=== PATIENT | male | born 1945 | race Caucasian/White ===

== ENCOUNTER 2024-09-23 18:44 | Emergency (ER) | payer MEDICARE ==
[~2024-09-23] VITALS: Ht 177.8 cm; Wt 83.0 kg
[2024-09-23 18:55] VITALS: BP 140/77; PULSE 89; RESP 16; TEMP 97.6
--- NOTE | 2024-09-23 19:09 | ERN ---
ED Note History of Present Illness Stated Complaint: LACERATION Chief Complaint: Laceration/Avulsion Time Seen by MD: 18:56 Dictation: Patient is a 79-year-old male here with a 2.5 cm laceration to the dorsum of left hand after a electric brush jumped and hit him in the back of the hand. Neurovascular CMS intact, last tetanus shot is unknown, patient states he is not a diabetic. No active bleeding at this time. Allergies: Coded Allergies: codeine (Unverified Allergy, Unknown, ITCHING, 09/23/24) Past Medical History Past Medical History: Cancer, High Cholesterol Surgical History: Tonsillectomy Surgical History Other: RT NEPHRECTOMY, LT HAND SX, NECK TUMOR REMOVAL, RT HAND SX RN Note Reviewed/Agreed w/PFSH: Yes Review of System Dictation CONSTITUTIONAL: NEGATIVE EXCEPT FOR HPI HEAD/FACE: NEGATIVE EXCEPT FOR HPI EENT: NEGATIVE EXCEPT FOR HPI RESPIRATORY: NEGATIVE EXCEPT FOR HPI GASTROINTESTINAL/ABDOMINAL: NEGATIVE EXCEPT FOR HPI GENITOURINARY: NEGATIVE EXCEPT FOR HPI MUSCULOSKELETAL: NEGATIVE EXCEPT FOR HPI INTEGUMENTARY: NEGATIVE EXCEPT FOR HPI LACERATION DORSUM LEFT HAND NEUROLOGICAL/PSYCH: NEGATIVE EXCEPT FOR HPI HEMATOLOGIC/LYMPHATIC: NEGATIVE EXCEPT FOR HPI ALL SYSTEMS NEGATIVE, EXCEPT NOTED ABOVE. 13 POINT REVIEW OF SYSTEMS ASSESSED AND ALL NEGATIVE EXCEPT FOR ABOVE. Initial Vital Sign VS Vital Signs Date Time Temp Pulse Resp B/P (MAP) Pulse Ox O2 Delivery O2 Flow Rate FiO2 09/23/24 18:55 97.5 89 16 140/77 97 Room Air 0 Physical Exam Dictation VITAL SIGNS REVIEWED GENERAL APPEARANCE: ALERT, ORIENTED X 3, MY ACUTE DISTRESS, WELL DEVELOPED, NOURISHED. HEAD AND FACE: NON-TRAUMATIC. EYES: PERRL, PINK CONJUNCTIVAS, EYELID NO TRAUMA, ANTERIOR CHAMBER WITH ARCUS SENILIS. EARS: PINNAS INTACT AND NO SIGNS OF TRAUMA OR ERYTHEMA EAR CANALS CLEAR AND NO DISCHARGE TM NO ERYTHEMA NOSE: NO DISCHARGE, NO BLEEDING. OROPHARYNX: MOUTH NORMAL, TONGUE PINK, PHARYNX CLEAR,NO ERYTHEMA, TONSILS NO EXUDATES, NO ABSCESSES NOTED, MUCOUS MEMBRANE MOIST NECK: SUPPLE, NON-TENDER, NO THYROMEGALY, NO MASSES, NO JVD, NO BRUITS BREAST:DEFERRED CHEST:NO TENDERNESS, NO CREPITUS, NO PARADOXICAL MOVEMENT, NO RETRACTIONS LUNGS:CLEAR, WELL-VENTILATED, SYMMETRIC, NO RALES, NO WHEEZING, NO RHONCHI, NO STRIDOR, GOOD BREATH SOUNDS BILATERALLY HEART: REGULAR RATE, REGULAR RHYTHM, NO MURMUR, NO GALLOPS VASCULAR: NO PERIPHERAL EDEMA, ABDOMEN: SOFT, POSITIVE BOWEL SOUNDS, NONDISTENDED, NO GUARDING, NONTENDER, NO REBOUND, NO MASSES NO HEPATOMEGALY, NO SPLENOMEGALY, NO BOND'S SIGN, NO HERNIAS. RECTAL: DEFERRED GENITAL: DEFERRED NEUROLOGICAL: NORMAL SPEECH, MOTOR FUNCTION INTACT, SENSORY FUNCTION INTACT MUSCULOSKELETAL: NECK NONTENDER, FULL RANGE OF MOTION, BACK NONTENDER, FULL RANGE OF MOTION, EXTREMITIES: NONTENDER, FULL RANGE OF MOTION SKIN: COLOR PINK, DRY, N 2.5 CM LACERATION TO DORSUM OF LEFT HAND. NO ACTIVE BLEEDING. NEUROVASCULAR CMS INTACT TO HAND FULL RANGE OF MOTION LYMPHATIC: DEFERRED Results (Laboratory/Radiology) Labs Reviewed?: Yes ED Course ED Course Orders Procedure Category Date Status Time Lidocaine Hcl 1% 20ml PHA 09/23/24 In Process Vial (Lidocaine Hc 19:30 Tetanus,Diphtheria PHA 09/23/24 Complete Tox [Adult] (Diphther 19:30 Neomy PHA 09/23/24 Complete Sulf/Bacitra/Polymyxin 19:30 Cephalexin 500 Mg PHA 09/23/24 Complete Capsule (Keflex 500 Mg 19:30 Current Medications Medications (Trade) Dose Ordered Sig/Cesilia Route PRN Reason Start Time Stop Time Status Last Admin Dose Admin Cephalexin (Keflex 500 MG CAPS) 1,000 mg ONCE ONCE PO 09/23/24 19:30 09/23/24 19:31 DC 09/23/24 19:17 Lidocaine HCl (Lidocaine HCl 1% 20ml Vial) 10 ml ONCE INJ 09/23/24 19:30 10/23/24 19:29 09/23/24 19:32 Neomycin/ Polymyxin/ Bacitracin (Triple Antibiotic Ointment) 1 appl ONCE ONCE TP 09/23/24 19:30 09/23/24 19:31 DC 09/23/24 19:18 Tetanus/ Diphtheria Toxoids Adsorbed (DiphthERIA-teTANUS TOXOID [ADULT]/ DECAVAC) 0.5 ml ONCE ONCE IM 09/23/24 19:30 09/23/24 19:31 DC 09/23/24 19:32 Vital Signs Date Time Temp Pulse Resp B/P (MAP) Pulse Ox O2 Delivery O2 Flow Rate FiO2 09/23/24 18:55 97.5 89 16 140/77 97 Room Air 0 Medical Decision Making [facility] MEDICAL DISCHARGE MAKING BASED ON UPDATING TETANUS SHOT GIVEN KEFLEX1 G PROPHYLACTICALLY DUE TO NATURE OF INJURY LACERATION TO DORSUM LEFT HAND CLOSED PATIENT TOLERATED WELL Procedure Procedure Dictation: [id number] PROCEDURE EXPLAINED TO PATIENT HE AGREED TO PROCEED 2.5 CM LACERATION DORSUM LEFT HAND CLEANSED WITH WOUND CLEANSER 3 ML 1% LIDOCAINE PLAIN FOR LOCAL ANESTHESIA NO DEBRIDEMENT LACERATION CLOSED WITH ONE 4-0 PROLENE RUNNING SUTURE SINGLE-LAYER CLOSURE PATIENT TOLERATED WELL NEUROVASCULAR CMS INTACT TO LEFT HAND DX & DISP Disposition: Discharge Departure Impression: Primary Impression: Laceration of left hand Condition: Stable Scripts Cephalexin (Cephalexin) 500 Mg Tablet 1 TAB PO QID for 7 Days, #28 TAB 0 Refills Prov: FRANCIA PRORAS NP 09/23/24 Additional Instructions: FOLLOW-UP WITH PRIMARY CARE PROVIDER IN 1 TO 2 DAYS. TAKE MEDICATIONS DIRECTED HERE IN THE EMERGENCY ROOM. OKAY TO CONTINUE HOME MEDICATIONS UNLESS OTHERWISE DISCUSSED DURING YOUR VISIT IN THE EMERGENCY ROOM TODAY. RETURN TO YOUR NEAREST EMERGENCY ROOM IF SYMPTOMS WORSEN OR IF THERE IS NO IMPROVEMENT. CALL 911 IF YOU NEED IMMEDIATE ASSISTANCE. TAKE TYLENOL OR MOTRIN [id number] NEEDED AND IF NO CONTRAINDICATIONS ARE PRESENT. INCREASE ORAL HYDRATION. A WOUND CULTURE OR URINE CULTURE WAS ORDERED HERE IN THE EMERGENCY ROOM DEPARTMENT PLEASE FOLLOW-UP WITH PRIMARY CARE PROVIDER AND ADVISE THEM TO GET REPEAT PORTS FROM OUR FACILITY. IF YOU HAD ANY MEGHAN WRAP/SPLINTS T HAT WERE APPLIED HERE, PLEASE DO NOT REMOVE THEM UNTIL YOU SEE YOUR PRIMARY CARE OR SPECIALTY. TAKE ANTIBIOTICS DIRECTED UNTIL GONE. , KEEP LACERATION REPAIR CLEAN AND DRY UNTIL SUTURES REMOVED. TRIPLE ANTIBIOTIC OINTMENT WITH DRESSING3 TIMES A DAY FO R FIVE DAYS. SUTURES OUT IN 10-14 DAYS. Referrals: SELF,REFERRAL (PCP) Time of Disposition: 19:54 I have reviewed the case, and I agree with, Diagnosis and Plan FRANCIA PORRAS NP Sep 23, 2024 19:09
[2024-09-23] MEDS: cePHALexin 500 MG CAPSULE PO ONE (19:17)
[2024-09-23] MEDS: NEOMY SULF/BACITRA/POLYMYXIN B 1 EACH PACKET TP ONE (19:18)
[2024-09-23] MEDS: teTANUS/diphthERIA TOXOID [ADULT] 0.5 ML VIAL IM ONE (19:32)
[2024-09-23] MEDS: LIDOCAINE HCL 1% 20 ML VIAL INJ SCH (19:32)
[2024-09-23] MEDS ORDERED: CEPH500T PO (19:56)
--- NOTE | 2024-09-23 20:11 | NUR ---
LACERATION TO L HAND CLEANED WITH SKIN CLEANSER, IRRIGATED WITH NS. LIDOCAINE ADMINISTERED AND SUTURES APPLIED BY Aftab PORRAS NP. WOUND COVERED WITH NONADHERENT GAUZE AND WRAPPED WITH KERLIX. PATIENT TOLERATED WELL
== END 2024-09-23 20:14 | disposition home or self-care (01) ==
LOC: EDH 18:44
DX: S61.412A Laceration without foreign body of left hand, initial encounter (principal); E78.00 Pure hypercholesterolemia, unspecified; Z88.5 Allergy status to narcotic agent; Z90.5 Acquired absence of kidney; W22.8XXA Striking against or struck by other objects, initial encounter; Y93.89 Activity, other specified; Y92.89 Other specified places as the place of occurrence of the external cause; Y99.8 Other external cause status
CPT/HCPCS: 12001; 90471; 90714; 99283